=== PATIENT | female | born 1955 | race African-American/Black ===

== ENCOUNTER → 2019-01-18 | Outpatient (CLI) | payer OTHER ==
[~2019-01-18] VITALS: Ht 167.6 cm; Wt 60.3 kg
[~2019-01-18] MED LIST: AMITRIPTYLINE H10 M3 PO; B COMPLEX1 EACH PO; EVENING PRIMR1000 MG PO; HYDROCODONE-AP1 EA11 PO; JANUMET 50-1,01 EACH PO; MULTIPLE VITAM1 EACH PO; TYLENOL WITH CO1 TA1 PO
[2019-01-18 08:25] VITALS: BP 142/92
--- NOTE | 2019-01-18 09:09 | NUR ---
Pain Clinic Assessment: 1. History of Osteoarthritis: Not Applicable History of Rheumatoid Arthritis: Not Applicable 2. Height: 5 ft. 6 in. 167.6 cm. Weight: 133.0 lb. oz. 60.328 kg. Patient's BMI: 21.5 3. Vital Signs: BP: 142/92 Pulse: 84 Resp: 14 Temp: 02 Sat: 100 ECG Mon: 4. Pain Intensity: 7 5. Fall Risk: Dizziness: N Needs help standing or walking: N Fallen in the last 3 months: N Fall risk comments: 6. Patient on Blood Thinner: None 7. History of Hypertension: N 8. Opioid Therapy greater than 6 weeks: Y Opiate Contract Signed: 9. Risk Assessment Tool Provided: 10. Functional Assessment Tool: 11. Recreational Drug Use: Past greater than 3 mos Drug Type: MARIJUANIA Tobacco Use: Former Smoker Tobacco Type: Cigarettes Amount or Packs/day: 1 How Many Years: Alcohol Use: Yes Frequency: Weekly Quant: 1
--- NOTE | 2019-01-20 08:25 | HPC ---
[facility] [address] [place] [address] PAIN MANAGEMENT CONSULTATION Name: JEAN PAUL ROACH Room #: [facility] Stepan.#: [id number] Admission: 01/18/19 Attend Phys: Milan Pond MD Discharge: Date of : 55 Report #: [id number] THIS REPORT FOR: //name// CC: Ginny Pond CHIEF COMPLAINT: Pain in the abdominal area. Pain in the hips and pelvis area. HISTORY OF PRESENT ILLNESS: The patient is a 63-year-old female who has been referred to the pain clinic for evaluation of pain. The patient states that she has history of fibroids. She is scheduled in the near future to have hysterectomy. She is experiencing pain that involves her low back area on the left as well as has pain that radiates in the area of her pelvis. This is problematic and is down in the area of the lower abdominal area. Notes that the pain intensity, sometimes varies. She notes some shooting and lancinating pains, which can be quite problematic. Sometimes sleeping is difficult because these lancinating pains can awaken her. Notes that the pain is worse with stretching movements as well as constipation. Pain is made better with use of pain killers as well as warm Epsom salt baths. Notes the pain is constant without a pain killer. Has a burning component to the pain, has an aching component to the lower abdominal area. In certain areas, she notes that the pain is sharp in the pelvis area as well as in the hip area on the left side. Rates it today as a 7/10. She has had breast cancer and undergoing chemotherapy in the past. Ultrasound measurements of her uterus were 10 x 6.9 x 6.8 cm. The patient has been noted to have fibroids. The patient has tried Tylenol No. 3, and not had significant improvement with the use of this medication. ALLERGIES: No known drug allergies. CURRENT MEDICATIONS: [place] 1000 mg, vitamin B complex, multiple vitamins for women, Codeine #3 q. 8 hours p.r.n., metformin, sitagliptin b.i.d. PAST MEDICAL HISTORY: Hypertrophy of the uterus, breast cancer, diabetes, chemotherapy treatment for breast cancer. PAST SURGICAL HISTORY: Cataract surgery for 2019, cancer in 2012. 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 REVIEW OF SYSTEMS: Weight change, wears glasses, cataracts 06/2018. Loss of appetite, abdominal pain, [place] [address] PAIN MANAGEMENT CONSULTATION Name: JEAN PAUL ROACH Room #: REG [facility].#: [id number] Admission: 01/18/19 Attend Phys: Milan Pond MD Discharge: Date of : 55 Report #: [id number] LABORATORY DATA: No new laboratory values were available at the time of our interview. PAIN CLINIC ASSESSMENT/PQRS: 1. History of osteoarthritis. The patient is not being treated for osteoarthritis. The patient is not being treated for rheumatoid arthritis. 2. Height 5 feet 6 inches, weight 133 pounds, BMI is 21.5. 3. Vital signs: Blood pressure 142/92, pulse 84, respiratory rate 14, room air saturation is 100%. 4. Pain intensity 10. 5. Fall risk. The patient has not fallen in the last 3 months. 6. Blood thinner. The patient is not on a blood thinning medication. 7. Hypertension. The patient is not being treated for hypertension. 8. Opioids greater than 6 weeks. The patient is not on an opioid regimen. 9. Risk assessment tool, low for opioid use. 10. Functional assessment tool. 11. Recreational drug use. The patient denies recent use of recreational drugs. 12. Tobacco: The patient is a former smoker, smoked 1 pack of cigarettes per day. 13. Alcohol. The patient drinks about one alcoholic beverage per week. PHYSICAL EXAMINATION: GENERAL: The patient is a well-developed, well-nourished black female, appears her stated age. She is alert and oriented x 3. Her affect is appropriate. Speech is fluent. HEENT: Normocephalic, atraumatic. Extraocular eye muscles intact. Sclerae nonicteric. Mucous membranes are moist. NECK: Without adenopathy or JVD. HEART: Regular rate. ABDOMEN: With pain and discomfort in the low back area as well as some pain radiating down in the infraumbilical area. Certain movements can exacerbate her discomfort. Has some pain radiating into the left groin area. EXTREMITIES: Upper extremity muscle strength judged to be 5/5 for the major muscle groups in the upper extremity. Deep tendon reflexes are +1 at the biceps bilaterally and absent for the brachioradialis and triceps. Deep tendon reflexes are trace at the knees bilaterally. Absent in the ankles. Forward bending to about 45 degrees is limited because of increased abdominal discomfort. Lumbar extension caused some increased low back pain, most of her pain is focused in the mid abdominal area. Left and right lateral rotation cause some increased discomfort in the suprapubic area as well. IMPRESSION: 1. Abdominal pain with history of fibroids. 2. Hypertrophy of the uterus. 3. Breast cancer. [facility] [address] [place] [address] PAIN MANAGEMENT CONSULTATION Name: JEAN PAUL ROACH Room #: [facility]#: [id number] Admission: 01/18/19 Attend Phys: Milan Pond MD Discharge: Date of : 55 Report #: [id number] 4. Diabetes. 5. Chemotherapy treatment for breast cancer. RECOMMENDATIONS: We discussed treatment options with the patient. It appears that the pain that she has experienced in the abdominal area is worse and exacerbated with movement. I think it would be reasonable to try a low dose of opioid medications to help control the pain. The patient states she is going to have surgery in about a week. We will have her try hydrocodone 7.5 mg 1 p.o. t.i.d. We will also have the patient try amitriptyline 10 mg 1 tablet per night for about 3 nights. If her sleep pattern continues to be problematic and she continues to have the lancinating pain, we will then increase it to 2 tablets at night. We can continue to increase this over a period of time as the patient is able to tolerate it. The patient is contemplating surgery. At this point, nonsteroidal anti-inflammatories would probably be contraindicated prior to surgery. We would be willing to see the patient in postop. Hopefully, her surgery will help decrease the pain and discomfort and she will heal up quickly. We would like to thank you for letting us participate in her care. A script for [place] 7.5 mg, a total of 25 tablets have been prescribed. The patient will call us if she has any problems with the medications. <ELECTRONICALLY SIGNED> By: Milan Pond MD 01/20/19 [id number] Milan Pond MD /nt
== END ==
LOC: PAIN 06:49
DX: R10.9 Unspecified abdominal pain (principal); N62 Hypertrophy of breast; E11.9 Type 2 diabetes mellitus without complications; C50.919 Malignant neoplasm of unspecified site of unspecified female breast